=== PATIENT | male | born 1960 | race Caucasian/White ===

== ENCOUNTER → 2023-10-11 13:43 | Outpatient (REF) | payer OTHER, SELFPAY | LOC: DHCBC HW 13:43 | PROVIDERS: ATTENDING PHYSICIAN Internal Medicine Cardiovascular Disease; FAMILY PHYSICIAN Family Medicine | DX: I10 Essential (primary) hypertension (principal); E78.2 Mixed hyperlipidemia; R06.09 Other forms of dyspnea | CPT/HCPCS: 93306 ==

== ENCOUNTER → 2023-10-17 07:30 | Outpatient (REF) | payer OTHER, SELFPAY | LOC: DHCBC/DCA 07:30 | PROVIDERS: ATTENDING PHYSICIAN Internal Medicine Cardiovascular Disease; FAMILY PHYSICIAN Family Medicine | DX: I10 Essential (primary) hypertension (principal); E78.2 Mixed hyperlipidemia; R06.09 Other forms of dyspnea | CPT/HCPCS: 78452; 93017; A9500 ==